=== PATIENT | female | born 1990 | race Caucasian/White ===

== ENCOUNTER 2020-06-12 05:50 | Inpatient (IN) ==
[2020-06-12] MEDS ORDERED: ONDANSETRON 4 MG/2 ML VIAL IV PRN (06:48)
[2020-06-12] MEDS ORDERED: BUTORPHANOL 2 MG/ML VIAL IV PRN (06:48)
[2020-06-12] MEDS ORDERED: LACTATED RINGERS 250 ML IV ONE (06:48)
[2020-06-12] MEDS: LACTATED RINGERS 1,000 ML IV SCH ×2 (06:57→16:28)
[2020-06-12 07:18] LABS: Basophils # 0.1 10*3/uL (0.0-0.2); Basophils % 0.6 % (0.0-0.8); Eosinophils # 0.1 10*3/uL (0.0-0.87); Hematocrit 37.2 VOL% (35.7-47.0); Hemoglobin 11.6 GM/DL (12.0-16.0); Immature Granulocytes % 0.8 %; Immature Granulocytes Absolute 0.07 #; Lymphocytes # 2.9 10*3/uL (1.4-4.0); Lymphocytes % 33.6 % (21.3-54.2); Mean Corpuscular HGB Conc 31.2 GM/DL (32-36); Mean Corpuscular Volume 82.3 FL (87-102); Mean Platelet Volume 12.5 FL (9.6-12.0); Monocytes % 6.7 % (1.7-12.7); NRBC # 0.02 10*3/uL; Neutrophils % 57.3 % (38.7-73.9); Platelet Count 190 T/CUMM (130-400); Red Blood Count 4.52 MC/CUMM (3.8-5.5); Red Cell Distribution Width 14.8 % (9.3-17.3); White Blood Count 8.6 T/CUMM (4-12)
[2020-06-12] MEDS: OXYTOCIN/LR 20 UNIT/1,000 ML BAG IV SCH (08:02)
[2020-06-12 09:43] LABS: Alanine Aminotransferase 69 U/L (13-56); Albumin 2.6 G/DL (3.4-5.0); Alkaline Phosphatase 257 U/L (45-117); Aspartate Amino Transferase 44 U/L (0-37); Bilirubin,Total < 0.39 MG/DL (0.2-1.0); Blood Urea Nitrogen 17 MG/DL (7-18); Calcium 8.8 MG/DL (8.5-10.1); Estimated Glom Filtration Rate 71 ML/MIN; Glucose 104 MG/DL (74-106); Osmolality,Calculated 271.1 MOS/KG (273-304); Total Protein 7.5 G/DL (6.4-8.3)
[2020-06-12] MEDS ORDERED: NALOXONE 0.4 MG/ML VIAL IV PRN (20:45)
[2020-06-12] MEDS ORDERED: ePHEDrine 50 MG/ML VIAL IV PRN (20:45)
[2020-06-12] MEDS ORDERED: FAMOTIDINE 20 MG/2 ML VIAL IV ONE (20:45)
[2020-06-12] MEDS ORDERED: CITRIC ACID/SODIUM CITRATE 30 ML UDCUP PO ONE (20:45)
[2020-06-12] MEDS: fentaNYL 2 MCG/ROPIV 0.2% EPID 100 ML EPIDURAL SCH (21:37)
[2020-06-12 23:42] LABS: Apearance,Urine CLEAR (Clear); Bilirubin,Urine Negative (Negative); Blood, Urine Negative (Negative); Glucose,Urine (UA) Negative (Negative); Ketones,Urine 5 mg/dL (Negative); Nitrite,Urine Negative (Negative); Protein,Urine Negative; Urine Color Straw (Yellow); Urine Specific Gravity 1.005 (1.001-1.035); Urine Urobilinogen < 2.0 EU/DL (0.2-1.0); WBC,Urine <1 /HPF (0-6)
[2020-06-13] MEDS: OXYTOCIN/LR 20 UNIT/1,000 ML BAG IV SCH (02:37)
[2020-06-13] MEDS: fentaNYL 2 MCG/ROPIV 0.2% EPID 100 ML EPIDURAL SCH (06:14)
[2020-06-13] MEDS: LACTATED RINGERS 1,000 ML IV SCH (06:14)
[2020-06-13] MEDS ORDERED: TRANEXAMIC ACID 1,000 MG/10 ML VIAL ONE (10:20)
[2020-06-13] MEDS ORDERED: CARBOPROST TROMETHAMINE 250 MCG/ML AMP IM ONE ×2 (10:20→11:47)
[2020-06-13] MEDS ORDERED: miSOPROStoL 200 MCG TABLET ONE (10:20)
[2020-06-13] MEDS ORDERED: LIDOCAINE 1% 50 ML VIAL ONE (10:20)
[2020-06-13] MEDS ORDERED: miSOPROStoL 200 MCG TABLET PO ONE (11:43)
[2020-06-13 12:16] LABS: Cord Venous Blood HCO3 21.5 MMOL/L
[2020-06-13] MEDS ORDERED: ACETAMINOPHEN 325 MG TABLET PO PRN (12:25)
[2020-06-13] MEDS ORDERED: BISACODYL 10 MG SUPP RECTAL PRN (12:25)
[2020-06-13] MEDS ORDERED: MEASLES/MUMPS/RUBELLA VACCINE 0.5 ML VIAL SUBCUT ONE (12:25)
[2020-06-13] MEDS ORDERED: WITCH HAZEL PADS 100/JAR TOP PRN (12:25)
[2020-06-13] MEDS ORDERED: OXYTOCIN/LR 20 UNIT/1,000 ML BAG IV ONE (12:25)
[2020-06-13] MEDS ORDERED: RHO(D) IMMUNE GLOBULIN 300 MCG SYRINGE IM ONE (12:25)
[2020-06-13] MEDS ORDERED: oxyCODONE/ACETAMINOPHEN 5-325 MG TABLET PO PRN ×2 (12:25)
[2020-06-13] MEDS ORDERED: ONDANSETRON 4 MG/2 ML VIAL IV PRN (12:25)
[2020-06-13] MEDS ORDERED: LANOLIN 50% CREAM 0.3 OZ TUBE TOP PRN (12:25)
[2020-06-13] MEDS ORDERED: DIPH/TET/ACEL PERT BOOSTER VACCINE 0.5 ML VIAL IM ONE (12:25)
[2020-06-13] MEDS ORDERED: HYDROCORTISONE 2.5% RECTAL CREAM 30 GM TUBE TOP PRN (12:25)
[2020-06-13] MEDS ORDERED: BENZOCAINE 20%/MENTHOL 0.5% SPRAY 56 GM CAN TOP PRN (12:25)
[2020-06-13 13:09] LABS: Hematocrit 31.3 VOL% (35.7-47.0); Hemoglobin 9.7 GM/DL (12.0-16.0)
[2020-06-13 17:18] LABS: Hematocrit 25.4 VOL% (35.7-47.0); Hemoglobin 7.9 GM/DL (12.0-16.0)
[2020-06-13] MEDS: IBUPROFEN 800 MG TABLET PO PRN (20:00)
[2020-06-13] MEDS: DOCUSATE SODIUM 100 MG CAPSULE PO SCH (20:00)
[2020-06-13] MEDS ORDERED: SODIUM CHLORIDE 0.9% 500 ML IV ONE (20:47)
[2020-06-13] MEDS ORDERED: SERTRALINE 100 MG TABLET PO SCH (21:00)
[2020-06-13] MEDS: FERROUS SULFATE 325 MG TABLET PO SCH (21:05)
[2020-06-13 21:29] LABS: Hematocrit 23.3 VOL% (35.7-47.0); Hemoglobin 7.3 GM/DL (12.0-16.0)
[2020-06-14] MEDS: SERTRALINE 25 MG TABLET PO SCH ×2 (00:09→21:01)
[2020-06-14] MEDS: SERTRALINE 100 MG TABLET PO SCH (00:09)
[2020-06-14] MEDS: IBUPROFEN 800 MG TABLET PO PRN ×2 (04:31→16:14)
[2020-06-14 05:39] LABS: Basophils % 0.2 % (0.0-0.8); Eosinophils % 0.2 % (0.00-10.9); Hematocrit 22.8 VOL% (35.7-47.0); Immature Granulocytes % 0.6 %; Immature Granulocytes Absolute 0.09 #; Lymphocytes # 3.8 10*3/uL (1.4-4.0); Lymphocytes % 24.6 % (21.3-54.2); Mean Corpuscular HGB Conc 30.7 GM/DL (32-36); Mean Corpuscular Volume 84.4 FL (87-102); Monocytes % 6.3 % (1.7-12.7); Neutrophils % 68.1 % (38.7-73.9); Platelet Count 151 T/CUMM (130-400); Red Cell Distribution Width 15.3 % (9.3-17.3); White Blood Count 15.3 T/CUMM (4-12)
[2020-06-14] MEDS: MULTIVITAMIN (PRENATAL) TABLET PO SCH (09:20)
[2020-06-14] MEDS: FERROUS SULFATE 325 MG TABLET PO SCH ×3 (09:20→21:00)
[2020-06-14] MEDS: DOCUSATE SODIUM 100 MG CAPSULE PO SCH ×2 (10:06→21:00)
[2020-06-15] MEDS: SERTRALINE 100 MG TABLET PO SCH (02:08)
[2020-06-15] MEDS: IBUPROFEN 800 MG TABLET PO PRN ×2 (03:06→12:35)
[2020-06-15] MEDS: MULTIVITAMIN (PRENATAL) TABLET PO SCH (09:31)
[2020-06-15] MEDS: DOCUSATE SODIUM 100 MG CAPSULE PO SCH (09:31)
[2020-06-15] MEDS: FERROUS SULFATE 325 MG TABLET PO SCH (09:32)
[2020-06-15 11:03] VITALS: BP 129/79
== END 2020-06-15 13:40 | disposition home or self-care (01) | DRG 768 ==
LOC: N.LD 05:50 → N.OB 06-13 16:02
PROVIDERS: ADMIT Obstetrics & Gynecology; ATTEND Obstetrics & Gynecology

== ENCOUNTER 2022-08-28 09:38 | Inpatient (IN) ==
[2022-08-28] MEDS ORDERED: METHYLERGONOVINE 0.2 MG/1 ML AMP IM PRN (10:07)
[2022-08-28] MEDS ORDERED: miSOPROStoL 200 MCG TABLET RECTAL PRN (10:07)
[2022-08-28] MEDS ORDERED: CARBOPROST TROMETHAMINE 250 MCG/ML AMP IM PRN (10:07)
[2022-08-28] MEDS ORDERED: ONDANSETRON 4 MG/2 ML VIAL IV PRN ×2 (10:07→18:55)
[2022-08-28] MEDS ORDERED: OXYTOCIN/LR 20 UNIT/1,000 ML BAG IV ONE ×3 (10:07→18:55)
[2022-08-28] MEDS ORDERED: TRANEXAMIC ACID 1,000 MG in SODIUM CHLORIDE 0.9% 100 ML IV PRN (10:07)
[2022-08-28] MEDS ORDERED: OXYTOCIN/LR 20 UNIT/1,000 ML BAG IV SCH (10:30)
[2022-08-28 10:34] LABS: Basophils % 0.2 % (0.0-0.8); Eosinophils # 0.1 10*3/uL (0.0-0.87); Eosinophils % 1.3 % (0.00-10.9); Hematocrit 37.6 VOL% (35.7-47.0); Hemoglobin 12.7 GM/DL (12.0-16.0); Immature Granulocytes % 0.4 %; Immature Granulocytes Absolute 0.04 #; Lymphocytes % 21.3 % (21.3-54.2); Mean Corpuscular HGB Conc 33.8 GM/DL (32-36); Mean Platelet Volume 12.7 FL (9.6-12.0); Monocytes # 0.7 10*3/uL (0.11-0.8); Monocytes % 6.9 % (1.7-12.7); Neutrophils % 69.9 % (38.7-73.9); Platelet Count 143 T/CUMM (130-400); Red Blood Count 4.32 MC/CUMM (3.8-5.5); Red Cell Distribution Width 13.3 % (9.3-17.3); White Blood Count 9.4 T/CUMM (4-12)
[2022-08-28 10:47] LABS: INR 0.9; PT Patient Result 9.8 SECS (10.1-12.1); Partial Thromboplastin Time 25.7 SECS (23.7-32.9)
[2022-08-28 10:55] LABS: Alanine Aminotransferase 35 U/L (13-56); Albumin 2.6 G/DL (3.4-5.0); Alkaline Phosphatase 157 U/L (45-117); Aspartate Amino Transferase 25 U/L (0-37); Bilirubin,Total < 0.39 MG/DL (0.20-1.00); Blood Urea Nitrogen 10 MG/DL (7-18); Carbon Dioxide 21 MMOL/L (21-32); Chloride 107 MMOL/L (98-107); Glucose 90 MG/DL (74-106); Osmolality,Calculated 271.8 MOS/KG (273-304); Potassium 4.2 MMOL/L (3.5-5.1); Sodium 137 MMOL/L (136-145); Total Protein 6.4 G/DL (6.4-8.2); Uric Acid 5.3 MG/DL (2.6-6.0)
[2022-08-28] MEDS: LACTATED RINGERS 1,000 ML IV SCH ×2 (10:55→14:43)
[2022-08-28 11:05] LABS: Protein/Creatinine Ratio,Urine 0.3 RATIO
[2022-08-28] MEDS ORDERED: diphenhydrAMINE 50 MG/1 ML VIAL IV PRN ×2 (13:57)
[2022-08-28] MEDS ORDERED: PROMETHAZINE 25 MG/1 ML VIAL IM ONE (13:57)
[2022-08-28] MEDS ORDERED: FAMOTIDINE 20 MG/2 ML VIAL IV ONE (13:57)
[2022-08-28] MEDS ORDERED: CITRIC ACID/SODIUM CITRATE 30 ML UDCUP PO ONE (13:57)
[2022-08-28] MEDS ORDERED: hydrOXYzine HCL 25 MG/1 ML VIAL IM PRN (13:57)
[2022-08-28] MEDS ORDERED: NALOXONE 0.4 MG/ML VIAL IV PRN (13:57)
[2022-08-28] MEDS ORDERED: ePHEDrine 50 MG/ML VIAL IV PRN (13:57)
[2022-08-28] MEDS ORDERED: fentaNYL 2 MCG/ROPIV 0.2% EPID 100 ML EPIDURAL SCH (14:00)
[2022-08-28 15:11] LABS: Bilirubin,Urine Negative (Negative); Blood, Urine Trace mg/dL (Negative); Glucose,Urine (UA) Negative (Negative); Ketones,Urine Negative (Negative); Nitrite,Urine Negative (Negative); Protein,Urine 30 mg/dL (Negative); Urine Appearance Clear (Clear); Urine Color Yellow (Yellow); Urine Specific Gravity 1.025 (1.001-1.035); Urine Urobilinogen 0.2 eU/dL (<2.0)
[2022-08-28 15:15] LABS: Bacteria,Urine Few /HPF (Few); RBC,Urine 13 /HPF (0-4); Squamous Epithelial Cell,Urine Many /HPF (0-10)
[2022-08-28 16:15] LABS: Bilirubin,Urine Negative (Negative); Blood, Urine Moderate mg/dL (Negative); Glucose,Urine (UA) Negative (Negative); Ketones,Urine 80 mg/dL (Negative); Nitrite,Urine Negative (Negative); Protein,Urine Negative (Negative); Urine Appearance Clear (Clear); Urine Color Yellow (Yellow); Urine Urobilinogen 0.2 eU/dL (<2.0)
[2022-08-28 16:25] LABS: Mucus,Urine Occasional /LPF (Occasional); RBC,Urine 23 /HPF (0-4); Squamous Epithelial Cell,Urine Occasional /HPF (0-10)
[2022-08-28] MEDS ORDERED: SODIUM CHLORIDE 0.9% 100 ML IV ONE (16:28)
[2022-08-28] MEDS ORDERED: TRANEXAMIC ACID 1,000 MG/10 ML VIAL ONE (16:28)
[2022-08-28] MEDS ORDERED: miSOPROStoL 200 MCG TABLET ONE (16:28)
[2022-08-28] MEDS ORDERED: CARBOPROST TROMETHAMINE 250 MCG/ML AMP IM ONE (16:29)
[2022-08-28 18:45] LABS: Cord Arterial Blood HCO3 17.6 MMOL/L
[2022-08-28 18:48] LABS: Cord Venous Blood HCO3 19.3 MMOL/L; Cord Venous Blood PO2 30.5
[2022-08-28] MEDS ORDERED: WITCH HAZEL PADS 100/JAR TOP PRN (18:55)
[2022-08-28] MEDS ORDERED: LANOLIN 50% CREAM 0.3 OZ TUBE TOP PRN (18:55)
[2022-08-28] MEDS ORDERED: MEASLES/MUMPS/RUBELLA VACCINE 0.5 ML VIAL SUBCUT ONE (18:55)
[2022-08-28] MEDS ORDERED: BENZOCAINE 20%/MENTHOL 0.5% SPRAY 56 GM CAN TOP PRN (18:55)
[2022-08-28] MEDS ORDERED: HYDROCORTISONE 2.5% RECTAL CREAM 30 GM TUBE TOP PRN (18:55)
[2022-08-28] MEDS ORDERED: BISACODYL 10 MG SUPP RECTAL PRN (18:55)
[2022-08-28] MEDS ORDERED: RHO(D) IMMUNE GLOBULIN 300 MCG SYRINGE IM ONE (18:55)
[2022-08-28] MEDS ORDERED: ACETAMINOPHEN 325 MG TABLET PO PRN (18:55)
[2022-08-28] MEDS ORDERED: DIPH/TET/ACEL PERT BOOSTER VACCINE 0.5 ML VIAL IM ONE (18:55)
[2022-08-28] MEDS ORDERED: oxyCODONE/ACETAMINOPHEN 5-325 MG TABLET PO PRN ×2 (18:55)
[2022-08-28] MEDS: IBUPROFEN 800 MG TABLET PO PRN (22:18)
[2022-08-29 05:19] LABS: Basophils % 0.3 % (0.0-0.8); Eosinophils % 0.4 % (0.00-10.9); Hematocrit 28.2 VOL% (35.7-47.0); Hemoglobin 9.3 GM/DL (12.0-16.0); Immature Granulocytes % 0.7 %; Immature Granulocytes Absolute 0.08 #; Lymphocytes # 2.5 10*3/uL (1.4-4.0); Lymphocytes % 22.3 % (21.3-54.2); Mean Corpuscular Volume 88.4 FL (87-102); Mean Platelet Volume 12.8 FL (9.6-12.0); Monocytes # 0.8 10*3/uL (0.11-0.8); Monocytes % 6.9 % (1.7-12.7); Neutrophils % 69.4 % (38.7-73.9); Platelet Count 120 T/CUMM (130-400); Red Blood Count 3.19 MC/CUMM (3.8-5.5); Red Cell Distribution Width 13.3 % (9.3-17.3); White Blood Count 11.2 T/CUMM (4-12)
[2022-08-29] MEDS: DOCUSATE SODIUM 100 MG CAPSULE PO SCH (08:33)
[2022-08-29] MEDS: IBUPROFEN 800 MG TABLET PO PRN ×2 (11:06→18:11)
[2022-08-30] MEDS: DOCUSATE SODIUM 100 MG CAPSULE PO SCH ×2 (00:04→09:41)
[2022-08-30] MEDS: IBUPROFEN 800 MG TABLET PO PRN (04:24)
[2022-08-30 08:27] VITALS: BP 133/84
[2022-08-30] MEDS ORDERED: INFLUENZA VIRUS VACCINE 0.5 ML SYRINGE IM ONE ×2 (09:00→11:00)
[2022-08-30] MEDS ORDERED: MULTIVITAMIN (PRENATAL) TABLET PO SCH (09:00)
[2022-08-30] MEDS ORDERED: DIPH/TET/ACEL PERT BOOSTER VACCINE 0.5 ML VIAL IM ONE (11:00)
== END 2022-08-30 11:45 | disposition home or self-care (01) | DRG 807 ==
LOC: N.LD 09:38 → N.OB 22:12
PROVIDERS: ADMIT Obstetrics & Gynecology; ATTEND Obstetrics & Gynecology